=== PATIENT | male | born 1980 | race African-American/Black ===

== ENCOUNTER 2018-06-24 17:02 | Emergency (ER) | payer SELFPAY ==
[~2018-06-24] VITALS: Ht 185.4 cm; Wt 81.6 kg
[2018-06-24] MEDS ORDERED: IBUPROFEN 600 MG TAB PO ONE (17:30)
--- NOTE | 2018-06-24 18:33 | Diagnostic Imaging Report ---
LEFT HAND X-RAY - 3 VIEWS HISTORY: ^pain s/p trauma ^[id number] ^[id number] ^N COMPARISON: None available. FINDINGS: Bones: Mild cortical irregularity of the base of the left for metacarpal. Osseous alignment is within normal limits. Joints: The joint spaces are well-maintained. Soft tissues: The soft tissues appear unremarkable. IMPRESSION: Mild cortical irregularity of the base of the left for metacarpal suggestive of non displaced fracture. Signed by: Dr. Magdalena Carbajal M.D. on 06/24/2018 6:29 PM
--- NOTE | 2018-06-24 18:33 | Diagnostic Imaging Report ---
LEFT WRIST X-RAY - 3 VIEWS HISTORY: ^pain s/p trauma ^[id number] ^[id number] ^N COMPARISON: None available. FINDINGS: Bones: No acute displaced fracture in the wrist. Mild cortical irregularity of the base of the left for metacarpal suggestive of non displaced fracture. Osseous alignment is within normal limits. Joints: The joint spaces are well-maintained. Soft tissues: The soft tissues appear unremarkable. IMPRESSION: No acute displaced fracture in the wrist. Mild cortical irregularity of the base of the left for metacarpal suggestive of non displaced fracture. Signed by: Dr. Magdalena Carbajal M.D. on 06/24/2018 6:30 PM
[2018-06-24] MEDS ORDERED: TETANUS/DIPHTHERIA TOX ADULT 0.5 ML SYR IM ONE (20:00)
== END 2018-06-24 21:00 | disposition home or self-care (01) ==
LOC: ER 17:02
DX: S60.512A Abrasion of left hand, initial encounter (principal); X79.XXXA Intentional self-harm by blunt object, initial encounter; Y92.008 Other place in unspecified non-institutional (private) residence as the place of occurrence of the external cause
CPT/HCPCS: 99283